=== PATIENT | male | born 1965 | race Caucasian/White ===

== ENCOUNTER 2025-02-16 08:58 | Outpatient (AMB) | payer BC, SELFPAY ==
--- NOTE | 2025-02-16 09:00 | A.OFFVIS_ITS ---
Vital Signs 02/16/25 09:10 Height 5 ft 11 in Weight 174 lb BMI 24.3 BP 126/92 H Blood Pressure Location Lt brachial Position Sitting Respiration 16 Pulse 88 Pulse Source Pulse Oximeter Pulse Oximetry (%) 99 Oxygen Delivery Method Room Air Intake Visit Reasons: ENP resting tremor upper ext Proposal Writer Required: No Allergies No Known Allergies Allergy (Verified 02/16/25 09:13) Medication List - Last Reconciled 02/16/25 by Dalia Anguiano, DAVE hydroxyzine pamoate 25 mg PO DAILY PRN propranolol 10 mg PO BID 30 days quetiapine 50 mg PO BEDTIME sertraline 50 mg PO DAILY topiramate 25 mg PO BID HPI Comments Details: Anthony is a 59-year-old male patient with a past medical history of COPD, hypertr iglyceridemia, tobacco use, and prior history of cocaine, meth, and crack cocaine use. He has been referred for an evaluation of a resting upper extremity tremor. According to primary care notes, he spent 31 days in a detox facility in August of 2024 after which she was transferred to [facility] in [place]. At the time of his December 2024 primary care visit, he was talking with a therapist by weekly and has been overall feeling very well with abstinence from illicit substances. He did bring up a concern about a chronic tremor involving his hands though he noted that the tremor has been present since he was a teenager. His mother also had a similar tremor. He also noted his hands will shake at rest worse on the left. He had reported anxiety makes his hands worse and there is no history of Parkinson's disease in his family. Today Anthony tells me that he always have the shakes even as a teenager. He has noticed it more often within the last couple of years or so. His mother also had a tremor that he can recall. It is not significant acting his day-to-day life and he is able to carry on all of his daily activities such as eating, drinking, bathing, and grooming without any significant impairment. He does however notice his tremor more and at times he can feel nervous and embarrassed about his tremor when in public. He is currently taking topiramate 25 mg daily though this has been prescribed for curving cravings for his illicit drug use history. He has remained sober over the course of the last several months. Even with initiation of the topiramate, he has not seen any difference in his tremor. Tremor screening: Onset: Teenager Progression: Worse within the last cople of year Family history: Yes, his mother had a tremor Present with activity:Yes Present at rest: No Worse with anxiety: Yes Better with alcohol: Does not typically drink alcohol Insomnia: Has had difficulty sleeping for as long as he can remember. He uses seroquel with some benefit Acting out of dreams: No Chronic constipation: No Sense of smell:No impairment Moods: Stable on sertraline Changes in gait: No Prior workup: None [facility] Medical History (Updated 02/16/25 @ 09:40 by Dalia Anguiano, PAINT SUPERVISOR) Anxiety Depression Anemia Hypertriglyceridemia Varicose veins of both lower extremities COPD (chronic obstructive pulmonary disease) Tremor of both hands Family History (Updated 02/16/25 @ 09:11 by Luis Griffiths [facility]) Father Lung cancer Mother No problems noted. Social History Alcohol intake: never Patient Tobacco Use Status: Current everyday Tobacco user Cigarettes Per Day: 15 Substance Use Type: Crack/Cocaine and Methamphetamine Review of Systems Const All systems reviewed & are unremarkable except as noted in HPI and below Neuro Reports Abnormal speech present (Speech seemed slightly garbled at times. Voice tremor noted) Physical Exam Const General: cooperative, healthy appearing, comfortable and no acute distress Nutritional Appearance: well nourished Orientation/consciousness: oriented to person, oriented to place, oriented to time and patient oriented x3 Limitations: no limitations HEENT Head: Yes normal to inspection and Yes normocephalic Eyes General: appearance normal, both eyes and all related structures Visual Saul: normal visual saul by confrontation Alignment and Position: alignment normal Periorbital: periorbital findings normal Eyelids: Yes eyelids normal Conjunctivae: conjunctivae normal Sclerae: sclerae normal Neuro General: oriented to person, oriented to place, oriented to time, patient oriented x3 and tone normal Cranial nerves: Yes CN's II-XII intact bilaterally, Yes Facial sensation intact/muscles of mastication intact, Yes Bilaterally intact EOM present and Yes Ability to bilaterally elevate shoulders present Cognition (Neuro): normal cognition Speech: Abnormal speech present (Speech seemed slightly garbled at times. Voice tremor noted) Gait exam (Neuro): Normal gait present (Normal arm sway, no imbalance, not hu nched or shuffling) Motor exam (neuro): 08/24 motor strength present throughout and Tremors during motor activity present (Head, jaw, voice, and bilateral upper extremity tremor) Sensory Exam: double simultaneous stimulation for sensation normal Deep tendon reflexes (DTR's): Right triceps reflex intensity grade: 2+, Left triceps reflex intensity grade: 2+, Rt Biceps (C5, C6): 2+, Left biceps reflex intensity grade: 2+, Right brachioradialis reflex intensity grade: 2+, Left brachioradialis reflex intensity grade: 2+, Right patellar reflex intensity grade: 3+, Left patellar reflex intensity grade: 3+, Right ankle reflex intensity grade: 3+ and Left ankle reflex intensity grade: 3+ Coordination: No [id number]-[id number] test normal (Tremor present with this exam. Not necessarily worse at endpoint) and Romberg test negative Romberg Test: Negative Pupils: Normal pupillary reactivity/response: bilateral Psych Appearance: grossly normal Mental Status: mental status grossly normal Speech and movement: Normal speech and movement present and Clear speech present Affect: normal affect Attitude: cooperative Thought process: Normal thought process present Thought content: Normal thought content present Insight: Good insight present (Psych) Judgement: Good judgement present (Psych) Assessment & Plan Assessment & Plan (1) Essential tremor: Code(s): G25.0 - Essential tremor Category: Medical (2) Hyperreflexia: Code(s): R29.2 - Abnormal reflex Category: Medical Plan Anthony is a 59-year-old male patient with a past medical history of COPD, hypertriglyceridemia, tobacco use, and prior history of cocaine, meth, and crack cocaine use. He has been referred for an evaluation of a resting upper extremity tremor. He notes a long standing upper extremity tremor which runs in his family. It has been present since he was a teenager though slightly more evident over the course of the last couple of years. His tremor is not present with rest. His exam and history are suggestive of an essential tremor. Topiramate 25 mg daily however has not made any impact though this has been used for other reasons. He would like to try low-dose propranolol 10 mg twice daily for tremor especially associated with nervousness. His exam is also noteworthy for hyperreflexia 2 patellars and ankle jerk bilaterally. I will obtain an MRI of the brain with and without contrast to exclude any possibility of structural abnormalities that may have caused or exacerbated in existing tremor. -MRI brain with and without contrast -start low-dose propranolol 10 mg twice daily -follow up in 6 weeks after the MRI has been obtained. Orders: Orders MR head/brain wo/w con Today G25.0 - Essential tremor, R29.2 - Abnormal reflex Medications: New propranolol 10 mg PO BID 60 tabs 5RF 30 days Coding Level of Care Code New Pt Level 4 (87187) Diagnoses Essential tremor G25.0 Hyperreflexia R29.2
[2025-02-16 09:10] VITALS: BP 126/92; PULSE 88; RESP 16; O2SAT 99; BMI 24.3
--- OUTSIDE RECORDS SUMMARY | 2025-02-16 09:58 | XMS_ITS | Data Portability ---
Author Organization [place] - [facility], Allergy Address [address] [address] Care Team Providers Care Grab Jack Man Name Role Phone JEMMA NASCIMENTO Primary Care Provider Assessment Encounter Date Assessment Date Assessment LastModified by Organization Details LastModified Time 03/24/2024 03/24/2024 1. Left parotid mass 2. Smoking History This is a 58-year-old gentleman with a history of a left parotid mass ongoing for the last 6 months. Today a about 3 cm mass was noted at the left parotid tail. Ultrasound shows a cystic and solid mass in the left parotid gland. Fine-needle aspiration biopsy was taken today. - Follow-up FNA results - CT neck w/ contrast was ordered Will discuss results with patient on the phone. Not available 03/24/2024 10:11:19 05/07/2024 05/07/2024 58yo active smoker who presents today with a left parotid mass concerning for malignancy. CT imaging shows solid and cystic mass in the left parotid tail. Prior fine needle aspiration in the office was nondiagnositic. IR/ultrasound guided fine needle aspiration showed necrotic contents concerning for malignancy. I spoke to the patient about the need for a left parotidectomy for concern for malignancy. I would recommend evaluation with Dr. Jody Reed at [facility]. Not available 05/07/2024 14:52:57 Plan of Treatment Reminders Order Date Submit Date Provider Last Modified By Organization Details Last Modified Time Details Appointments None recorded . Lab microsco pic exam, cytology , tissue FNA (OBS) 2023 024 [facility] (Centralized Electronic Ordering - All Locations), Patient Can Go To The Location Of Their Choice, [id number] 12/06/202 4 20:02:45 Referral ENT surgery referral 2024 025 [email or web address] Not available 5 16:46:15 Procedures fine needle aspirati on, salivary gland mass (PROC) 2023 024 [facility], [address], [place], [address], 4 09:32:04 Surgeries None recorded . Imaging CT, neck, soft tissue, w/ contrast - left parotid mass - face & neck please 2023 024 [facility] [place], [address], [facility] [address], [address], 12:15:32 Medication Orders None recorded . Patient TargetsNo targets recorded. Patient InstructionsNo instructions recorded. Reason for Referral ENT Surgery Referral for Mas s of left parotid gland Referring Physician: Vignesh Walker, Otolaryngology, Encounter Date: 05/07/2024 Results Created Date Observation Date Name Description Value Unit Range Abnormal Flag Note LastModifiedBy Organization Detail LastModifiedTime 04/07/20 24 04/03/2024 CT, neck, soft tissu e, w/ contr ast No observ ation record ed. [facility] [place] [address], [address], 04/09/2024 13:14:13 Result Notes None recorded. Problems Name Problem SNOMED Code Status Onset Date Resolution Date Notes Provider Name and Address Organization Details Recorded Time Mass of left parotid gland 0919248236875973 3 Active 2023 VIGNESH WALKER MD [address] [address], [place], [address], [facility] - [facility] 4 09:10:43 Smoker 49799331 Active 2023 VIGNESH WALKER MD 100 [facility], [place], [address], [facility] - [facility] 4 10:11:28 Problem Notes None recorded. Procedures Surgical History Date Name Laterality Status Provider Name and Address Organization Details Recorded Time Fine Needle Aspiration completed VIGNESH WALKER MD [address] [place] [address], [phone], [place] - [facility] 03/24/2024 10:10:23 Imaging Results None recorded. Procedure Notes None recorded. Medical Equipment None Reported. Medications Name Sig Start Date Stop Date Status Note LastModified by Organization Details LastModified Time cephalexin 500 mg capsule TAKE 1 CAPSULE BY MOUTH EVERY 6 HOURS FOR 5 DAYS active Not Available Not Available No t Available GaviLyte-G 236 gram-22.74 gram-6.74 gram-5.86 gram oral solution PLEASE SEE ATTACHED FOR DETAILED DIRECTIONS active Not Available Not Available N ot Available Vitals Date Recorded Body height Body mass index (BMI) Body weight Provider Name and Address Organization Details Last Updated DateTime 03/24/2024 177.8 cm 22.2 kg/m2 09217.82 g Antony Lees [place] - [facility] 03/24/2024 08:45:19 Social History None recorded. Functional Status None recorded. Mental Status None recorded. Family History Nothing Reported. Medical History No medical history recorded. Past Encounters Encounter ID Performer Location Encounter Start Date Encounter Closed Date Diagnosis/Indication Diagnosis SNOMED-CT Code Diagnosis ICD10 Code Diagnosis IMO Codes Diagnosis Note [id number] VIGNESH WALKER MD [facility] [address] [address] 03/24/2024 08:25:37 03/24/2024 09:13:59 Mass of left parotid gland 0292617007 1619770 R22.1 Smoker 90539185 F17.200 [id number] VIGNESH WALKER MD [facility] [address] [address] 05/07/2024 14:47:42 05/07/2024 16:46:15 Mass of left parotid gland 7395661229 6847180 R22.1 Health Concerns Section Related Observation LastModified by Organization Detai ls LastModified Time None Recorded Concern Status LastModified by Organization Details LastModified Time None Recorded Advance Directives Directive None Recorded Payers Insurance Date Sequence Insurance Name Policy Number Policy Ayala Covered Member ID Ayala Member ID Guarantor Name 05/11/2024 1 [place] [employer]D Anthony Sands [id number] Anthony Vasquezelena Notes Date Note Type Note Provider Name and Address Organization Details Recorded Time 03/24/2024 text/html ROS as noted in the [facility] 58yo male who presents today for evaluation for left parotitis. He was referred by his PCP, Dr. Jemma Turner. He reports this has been present since October 2023. He denies any associated symptoms including no pain, no weakness, no history of infection. He smokes 1/2 pack a day times over 30 years. He denies any other significant health problems. Ultrasound was ordered by PCP. Imaging was reviewed and interpreted independently today t his shows a cystic and solid mass at the left parotid tail. VIGNESH WALKER MD [address] [place] [address],[address], [address], [facility] - [facility] 03/24/2024 10:12:33 05/07/2024 text/html ROS as noted in the [facility] 58yo gentleman with a history of a left parotid mass. 58yo male who presents today for evaluation for left parotitis. He was referred by his PCP, Dr. Jemma Turner. He reports this has been present since October 2023. He denies any associated symptoms including no pain, no weakness, no history of infection. He smokes 1/2 pack a day times over 30 years. He denies any other significant health problems. Ultrasound was ordered by PCP.CT imaging shows solid and cystic mass in the left parotid tail.Prior fine needle aspiration in the office was nondiagnositic.IR/u ltrasound guided fine needle aspiration showed necrotic contents concerning for malignancy. VIGNESH WALKER MD 100 [facility],[address], [address], [facility] - [facility] 05/07/2024 14:54:11
--- OUTSIDE RECORDS SUMMARY | 2025-02-16 09:58 | XMS_ITS | Clinical Summary ---
Author Organization [facility] Address [address] [place] [address] Phone Care Team Providers Care Equipment Service Engineer Name Role Phone SarahAjay bedolla Primary Care Provider [phone] Family History Medical History Relation Name Comments Coronary artery disease Neg Hx Social History Tobacco Use Types Packs/Day Years Used Date Smoking Tobacco: Every Day Smokeless Tobacco: Never Sex and Gender Information Value Date Recorded Sex Assigned at Not on file Legal Sex Male 6:05 PM EST Gender Identity Not on file Sexual Orientation Not on file Obstetrics History Last Filed Vital Signs Vital Sign Reading Time Taken Comments Blood Pressure 126/78 06/28/2022 2:33 PM EST Sit ting L Arm Pulse 91 06/28/2022 2:33 PM EST Temperature - - Respiratory Rate - - Oxygen Saturation - - Inhaled Oxygen Concentration - - Weight 71.7 kg (158 lb) 06/28/2022 2:33 PM EST Height 175.3 cm (5' 9 ) 06/28/2022 2:33 PM EST Body Mass Index 23.33 06/28/2022 2:33 PM EST Plan of Treatment Health Maintenance Due Date Last Done Comments Colorectal Cancer Screening: Colonoscopy 1966 DTaP,Tdap,and Td Vaccines (1 - Tdap) 1985 Hepatitis A Vaccines (1 of 2 - Risk 2-dose series) 1985 Hepatitis B Vaccines (1 of 3 - 19+ 3-dose series) 1985 Pneumococcal Vaccine: 50+ Years (1 of 2 - PCV) 1985 Zoster Vaccines (1 of 2) 2016 Hepatitis C Screening 03/24/2022 Social Influencers of Health Screening 03/24/2022 Depression Screening 04/22/2024 COVID-19 Vaccine ( season) 2024 08/27/2020, 08/05/2020 Influenza Vaccine (#1) 2024 3, 01/25/2016, 01/26/2015, Additional history exists Cholesterol Screening (Lipid Panel) 05/21/2029 05/21/2024 RSV Immunization Adult Patients (1 - 1-dose 75+ series) 2041 HIV Screening Completed 05/21/2024 HIB Vaccines Aged Out No longer eligi ble based on patient's age to complete this topic HPV Vaccines Aged Out No longer eligi ble based on patient's age to complete this topic IPV Vaccines Aged Out No longer eligi ble based on patient's age to complete this topic MMR Vaccines Aged Out No longer eligi ble based on patient's age to complete this topic Meningococcal ACWY Vaccine Aged Out N o longer eligible based on patient's age to complete this topic Meningococcal B Vaccine Aged Out No l onger eligible based on patient's age to complete this topic RSV Immunization Patients Under 20 months Aged Out No longer eligible based on patient's age to complete this topic Varicella Vaccines Aged Out No longer eligible based on patient's age to complete this topic Procedures Procedure Name Priority Date/Time Associated Diagnosis Comments HIV 1, 2 ANTIBODY, P24 ANTIGEN WITH REFLEX TO DIFFERENTIATION Routine 05/21/2024 11:50 AM EST Laboratory tests ordered as part of a complete physical exam (CPE) Anemia Parotid mass Drug abuse ([facility] V24, [facility] V28) LIPID PANEL WITH REFLEX TO DIRECT LDL Routine 05/21/2024 11:44 AM EST Laboratory tests ordered as part of a complete physical exam (CPE) Anemia Parotid mass from Last 3 Months or Most Recently Relevant to Health Maintenance Results * HIV 1,2 antibody, p24 antigen with reflex to differentiation (05/21/2024 11:50 AM EST) HIV Combo AB/AG Negative Negative LAB CHEMISTRY METHOD 05/21/2024 3:56 PM EST [facility] Blood Venous blood specimen / Unknown Venipuncture / Unknown 05/21/2024 11:50 AM EST 05/21/2024 11:50 AM EST [facility] - 05/21/2024 3:56 PM EST This assay is a 4th generation assay allowing for earlier detection of HIV infection by detecting the presence of the HIV-1 p24 antigen as well as the traditional antibodies to HIV type 1 (including group O) and type 2. Use of a 4th generation assay is the current CDC recommendation for HIV screening. us Lamonte Swati LAB BLOOD ORDERABLES Final Resul t [facility] [address] [place] [address], [place] [phone] * Lipid panel with reflex to direct LDL (05/21/2024 11:44 AM EST) Cholesterol 154 0 - 200 mg/dL LAB CHEMISTRY METHOD 05/21/2024 3:20 PM [facility] Triglycerides 69 0 - 150 mg/dL LAB CHEMISTRY METHOD 05/21/2024 3:20 PM [facility] HDL 60 >=40 mg/dL LAB CHEMISTRY METHOD 05/21/2024 3:20 PM [facility] LDL Calculated 80 0 - 100 mg/dL LAB CHEMISTRY METHOD 05/21/2024 3:20 PM [facility] VLDL Cholesterol [place] 13.8 mg/dL LAB CHEMISTRY METHOD 05/21/2024 3:20 PM [facility] Non HDL Chol. (LDL+VLDL) 94 <145 mg/dL LAB CHEMISTRY METHOD 05/21/2024 3:20 PM [facility] Chol/HDL Ratio 2.6 0.0 - 4.4 LAB CHEMISTRY METHOD 05/21/2024 3:20 PM [facility] Blood Venous blood specimen / Unknown Venipuncture / Unknown 05/21/2024 11:44 AM EST 05/21/2024 11:44 AM EST us Lamonte Swati LAB BLOOD ORDERABLES Final Resul t [facility] [address] [place] [address], [place] [phone] from Last 3 Months or Most Recently Relevant to Health Maintenance Insurance [facility] Care Teams Equipment Service Engineer Relationship Specialty Start Date End Date Ajay Iverson DO [address] [place] [phone] PCP - General 12/31/16
--- OUTSIDE RECORDS SUMMARY | 2025-02-16 09:59 | XMS_ITS | Encounter Summary ---
Author Organization [facility] Address [address] [place] [address] [place] [id number] Phone Care Team Providers Care Horseshoer Name Role Phone SarahAjay bedolla Primary Care Provider [phone] Encounter Details Date Type Department Care Team (Late st Contact Info) Description 11/15/2020 Procedure Pass [facility], Ct Scan - [facility] [address] [place] [address] Social History Tobacco Use Types Packs/Day Years Used Date Smoking Tobacco: Every Day Cigarettes 1 30 Smokeless Tobacco: Never Comments:14 cig/day for 30 y ears Alcohol Use Standard Drinks/Week Comments Not Currently 0 (1 standard drink = 0.6 oz pur e alcohol) Sex and Gender Information Value Date Recorded Sex Assigned at Male 11/15/2020 8:08 PM EDT Legal Sex Male 9:39 PM EDT Gender Identity Not on file Sexual Orientation Not on file documented as of this encounter Functional Status * Calculated C-SSRS Risk Score (Lifetime/Recent) Answer Date of Assessment Author No Risk Indicated 11/15/2020 12:58 PM EDT Jessica Dewey RN * Wheeler Suicide Severity Rating Scale (Screener/Recent Self-Report) Question Answer Date of Assessment Author 1. Wish to be (Past 1 Month) No 021 12:58 PM DAVIDT Jessica Dewey RN 2. Non-Specific Active Suici arnie Thoughts (Past 1 Month) No 11/15/2020 12:58 PM EDT Jessica Dewey RN 6. Suicidal Behavior (Lifetime) No 12:58 PM EDT Jessica Dewey RN documented as of this encounter Plan of Treatment Not on file documented as of this encounter Visit Diagnoses Not on filedocumented in this encounter Additional Health Concerns Infection Onset Date Last Indicated Resolved Time CoV-Risk Comment:Per note documentation 11/15/2020 11/15/2020 7:56 AM EDT documented as of this encounter Care Teams Horseshoer Relationship Specialty Start Date End Date Ajay Iverson DO [address] [place] [id number] PCP - General Internal Medicine 11/15/20 documented as of this encounter Additional Source Comments The information contained in this document represents components of the legal health record. It is not the complete legal health record.[facility]
--- OUTSIDE RECORDS SUMMARY | 2025-02-16 09:59 | XMS_ITS | Encounter Summary ---
Author Organization [facility] Address [address] [facility] [address] [place] [address] Phone Care Team Providers Care Foreign Exchange Services Manager Name Role Phone SarahAjay bedolla Primary Care Provider [phone] Encounter Details Date Type Department Care Team (Late st Contact Info) Description 04/08/2024 Transcribe Orders [facility] Cytology [address] [place] [address] Therese Walker MD [address] [place] [address] [email or web address] Social History Tobacco Use Types Packs/Day Years Used Date Smoking Tobacco: Every Day Cigarettes 1 30 Smokeless Tobacco: Never Comments:14 cig/day for 30 y ears Alcohol Use Standard Drinks/Week Comments Not Currently 0 (1 standard drink = 0.6 oz pur e alcohol) Education Answer Date Recorded Are you interested in more education? Not on dru e 08/17/2022 Are you concerned about learning? Not on file 08/17/2022 No 08/17/2022 No 08/17/2022 Digital Access Answer Date Recorded No 09/15/2022 No 09/15/2022 No 09/15/2022 Reliable internet access at home? Not on file 09/15/2022 Device with a working camera? Not on file Sex and Gender Information Value Date Recorded Sex Assigned at Male 11/15/2020 8:08 PM EDT Legal Sex Male 9:39 PM EDT Gender Identity Not on file Sexual Orientation Not on file documented as of this encounter Plan of Treatment Not on file documented as of this encounter Visit Diagnoses Not on filedocumented in this encounter Care Teams Foreign Exchange Services Manager Relationship Specialty Start Date End Date Ajay Iverson DO [address] [place] [address] 18 [place] [address] PCP - General Internal Medicine 11/15/20 documented as of this encounter Additional Source Comments The information contained in this document represents components of the legal health record. It is not the complete legal health record.[facility]
--- OUTSIDE RECORDS SUMMARY | 2025-02-16 09:59 | XMS_ITS | Clinical Summary ---
Author Organization [facility] Address [address] [place] [address] Care Team Providers Care Hvac Field Service Technician Name Role Phone Unavailable Primary Care Provider Unavailabl e Medications Medication Sig Dispensed Refills Start Date End Date Status predniSONE (DELTASONE) tablet 10 mg Prednisone 10 mg tablets - Disp. #40 - Si tabs daily x 3 days; 4 tabs daily x 3 days; 2 tabs daily x 3 days; 1 tab daily x 3 days 40 tablet 0 12/16/2021 Active diphenhydrAMINE (BENADRYL) 25 mg capsule Take 2 capsules (50 mg total) by mouth 3 (three) times a day as needed for itching. 30 capsule 0 12/16/2021 Active Social History Tobacco Use Types Packs/Day Years Used Date Smoking Tobacco: Never Assessed Sex and Gender Information Value Date Recorded Sex Assigned at Male 12/16/2021 12:30 PM EDT Gender Identity Not on file Sexual Orientation Not on file Job Start Date Occupation Industry Not on file Not on file Not on file Last Filed Vital Signs Vital Sign Reading Time Taken Comments Blood Pressure 109/75 12/16/2021 5:22 PM EDT Pulse 73 12/16/2021 5:22 PM EDT Temperature 36.7 C (98 F) 12/16/2021 5:22 PM EDT Respiratory Rate 18 12/16/2021 5:22 PM EDT Oxygen Saturation 95% 12/16/2021 5:22 PM EDT Inhaled Oxygen Concentration - - Weight - - Height - - Body Mass Index - - Plan of Treatment Not on file
--- OUTSIDE RECORDS SUMMARY | 2025-02-16 09:59 | XMS_ITS | Clinical Summary ---
Author Organization [facility] Address [address] [facility] [address] [place] [address] Phone Care Team Providers Care Fitting Room Supervisor Name Role Phone SarahAajy bedolla Primary Care Provider [phone] Allergies No known active allergies Medications No known medications Active Problems Problem Noted Date Diagnosed Date Lung nodule 11/16/2020 Assessment & Plan (11/16/2020 2:14 PM EDT): Reviewed CT findings with patient. Outpatient chest CT ordered Sepsis 11/15/2020 Assessment & Plan (11/16/2020 2:09 PM EDT): Patient presented with sepsis CT abdomen/pelvis showed diffuse colonic wall thickness consistent with colitis- most likely infectious. So far results show C. difficile negative. (Stool culture pending) Seen in consultation by GI. For now continue IV antibiotics, Zosyn, IV fluid Feeling a little bit better --no nausea less diarrhea no pain No colonoscopy needed Family History Medical History Relation Comments No Known Problems Father No Known Problems Mother Relation Status Comments Father Mother Social History Tobacco Use Types Packs/Day Years [...] on file Sexual Orientation Not on file Last Filed Vital Signs Vital Sign Reading Time Taken Comments Blood Pressure 135/78 11/17/2020 5:00 PM EDT Pulse 85 11/17/2020 5:00 PM EDT Temperature 36.6 C (97.8 F) 11/17/2020 5:00 PM EDT Respiratory Rate 20 11/17/2020 1:55 PM EDT Oxygen Saturation 99% 11/17/2020 5:00 PM EDT Inhaled Oxygen Concentration - - Weight 68 kg (150 lb) 11/15/2020 12:57 PM EDT Height 180.3 cm (5' 11 ) 11/15/2020 12:57 PM EDT Body Mass Index 20.92 11/15/2020 12:57 PM EDT Plan of Treatment Health Maintenance Due Date Last Done Comments Adult Td,Tdap Booster 1966 LIPID PANEL 1966 DEPRESSION SCREENING 1978 SMOKING Hx and SMOKELESS TOBACCO SCREENING 09/20/1979 HEPATITIS C SCREENING 1984 PNEUMOCOCCAL VACCINES (50+ years) (1 of 2 - PCV) 1985 COLOGUARD 09/20/2011 COLONOSCOPY 09/20/2011 COLORECTAL CANCER SCREENING 09/20/2011 FIT TEST 09/20/2011 FOBT 09/20/2011 SIGMOIDOSCOPY 09/20/2011 VIRTUAL COLONOSCOPY 09/20/2011 ZOSTER VACCINES (1 of 2) 2016 INFLUENZA VACCINE (#1) 2024 6, 01/26/2015, 02/09/2014 COVID-19 VACCINE (3 - 2024-2 6 season) 2024 08/27/2020, 08/05/2020 RSV VACCINE (1 - 1-dose 75+ series) 2041 HIV ONE-TIME SCREENING (18-6 5 YEARS) Completed 11/15/2020 HEPATITIS A VACCINES Aged Out No long er eligible based on patient's age to complete this topic HIB VACCINES Aged Out No longer eligi ble based on patient's age to complete this topic MENINGOCOCCAL VACCINES (ACWY) Aged Out No longer eligible based on patient's age to complete this topic MENINGOCOCCAL VACCINES (B) Aged Out N o longer eligible based on patient's age to complete this topic Medical Devices Not on file Insurance [employer] [facility] [employer] Advance Directives For more information, please contact: [phone] (9AM - 5PM [place]/[facility], Saturday-Saturday) * Full Code (Latest Code Status on File) Date Activated Date Inactivated Comments 11/15/2020 9:27 PM Question Answer Comments Code Status Confirmed With: Patient Care Teams Fitting Room Supervisor Relationship Specialty Start Date End Date Ajay Iverson DO [address] [place] [address] PCP - General Internal Medicine 11/15/20 Additional Source Comments The information contained in this document represents components of the legal health record. It is not the complete legal health record.[facility]
--- OUTSIDE RECORDS SUMMARY | 2025-02-16 09:59 | XMS_ITS | Encounter Summary ---
Author Organization [facility] Address [address] [place] [address] [place] [address] Phone Care Team Providers Care Perinatal Coordinator Name Role Phone Ajay Iverson DO Primary Care Provider [phone] Encounter Details Date Type Department Care Team (Late st Contact Info) Description 11/16/2020 Procedure Pass [facility], Ct Scan - [facility] [address] [place] [address] Social History Tobacco Use Types Packs/Day Years [...] documented as of this encounter Care Teams Perinatal Coordinator Relationship Specialty Start Date End Date Ajay Iverson DO [address] [place] [address] PCP - General Internal Medicine 11/15/20 documented as of this encounter Additional Source Comments The information contained in this document represents components of the legal health record. It is not the complete legal health record.[facility]
== END 2025-02-16 09:40 | disposition home or self-care (01) ==
PROVIDERS: PCP Internal Medicine; Visit Provider Nurse Practitioner
DX: G25.0 Essential tremor (principal); R29.2 Abnormal reflex
CPT/HCPCS: 99204

== ENCOUNTER 2025-03-24 15:52 | Outpatient (REF) | payer BC, SELFPAY ==
--- NOTE | ~2025-03-24 | MR_ITS ---
EXAMINATION: MR BRAIN WITHOUT THEN WITH IV CONTRAST CLINICAL INFORMATION: G25.0 - Essential tremor COMPARISON: None available. TECHNIQUE: Multiplanar, multisequence MRI of the brain was obtained before and after the intravenous administration of 7.5 ml of contrast gadolinium Gadavist. FINDINGS: Artifact degrades some sequences. Brain parenchyma: A few T2/FLAIR hyperintense foci in the white matter of bilateral frontal lobes. No shift of midline structures. No evidence of acute infarct, mass lesion, parenchymal hemorrhage or abnormal enhancement. Ventricles/extra-axial spaces: Mild generalized prominence of the ventricles and extra-axial spaces, reflecting mild brain volume loss, mildly more than expected for patient's age. No hydrocephalus. No extra-axial fluid collection. Extracranial structures: Arterial flow voids in the skull base are preserved. Bilateral orbital globes are unremarkable. Moderate mucosal thickening of the ethmoid air cells and mildly of the maxillary sinuses. Moderate right mastoid effusion. MR/MR head/brain wo/w con IMPRESSION: 1. No acute intracranial findings. 2. No abnormal parenchymal enhancement. 3. Few nonspecific white matter changes. Differential considerations include microangiopathic disease, headache related white matter changes, demyelinating disorder and various inflammatory/autoimmune/vasculitic processes. 4. Right mastoid effusion. Electronically signed by: Aura Goss MD 03/24/2025 06:31 PM KB
--- OUTSIDE RECORDS SUMMARY | 2025-03-24 18:43 | XMS_ITS | Encounter Summary ---
Author Organization [facility] Address [address] [facility] [address] [place] [address] Phone Care Team Providers Care Lining Parts Sewer Name Role Phone SarahAjay bedolla Primary Care Provider [phone] Encounter Details Date Type Department Care Team (Late st Contact Info) Description 04/08/2024 Transcribe Orders [facility] Cytology [address] [place] [address] Therese Walker MD [address] [place] [address] [email or web address] Social History Tobacco Use Types Packs/Day Years [...] on filedocumented in this encounter Care Teams Lining Parts Sewer Relationship Specialty Start Date End Date Ajay Iverson DO [address] [place] [address] 18 [place] [address] PCP - General Internal Medicine 11/15/20 documented as of this encounter Additional Source Comments The information contained in this document represents components of the legal health record. It is not the complete legal health record.[facility]
--- OUTSIDE RECORDS SUMMARY | 2025-03-24 18:43 | XMS_ITS | Encounter Summary ---
Author Organization [facility] Address [address] [place] [address] [place] [address] Phone Care Team Providers Care Supervisor Hand Silvering Name Role Phone Ajay Iverson DO Primary Care Provider [phone] Encounter Details Date Type Department Care Team (Late st Contact Info) Description 11/16/2020 Procedure Pass [facility], Ct Scan - [address] [address] Social History Tobacco Use Types Packs/Day Years [...] documented as of this encounter Care Teams Supervisor Hand Silvering Relationship Specialty Start Date End Date Ajay Iverson DO [address] [place] [address] PCP - General Internal Medicine 11/15/20 documented as of this encounter Additional Source Comments The information contained in this document represents components of the legal health record. It is not the complete legal health record.[facility]
--- OUTSIDE RECORDS SUMMARY | 2025-03-24 18:43 | XMS_ITS | Clinical Summary ---
Author Organization [facility] Prior to 09/19/24 Address [address] [place] [address] Care Team Providers Care Retarder Operator Name Role Phone Unavailable Primary Care Provider [...]
--- OUTSIDE RECORDS SUMMARY | 2025-03-24 18:43 | XMS_ITS | Clinical Summary ---
Author Organization [facility] Address [address] [facility] [address] [place] [address] Phone Care Team Providers Care Research Physiologist Name Role Phone SarahAjay bedolla Primary Care Provider [phone] Allergies No known active allergies Medications No [...] topic Medical Devices Not on file Insurance [employer] [facility] [employer] Advance Directives For more information, please contact: [phone] (9AM - 5PM [place]/[facility], Saturday-Saturday) * Full Code (Latest Code Status on File) Date Activated Date Inactivated Comments 11/15/2020 9:27 PM Question Answer Comments Code Status Confirmed With: Patient Care Teams Research Physiologist Relationship Specialty Start Date End Date Ajay Iverson DO [address] [place] [address] PCP - General Internal Medicine 11/15/20 Additional Source Comments The information contained in this document represents components of the legal health record. It is not the complete legal health record.[facility]
--- OUTSIDE RECORDS SUMMARY | 2025-03-24 18:43 | XMS_ITS | Data Portability ---
Author Organization [place] [facility] Address [address] [address] Care Team Providers Care Jig Hand Name Role Phone JEMMA NASCIMENTO Primary Care [...] recommend evaluation with Dr. Jody Reed at [facility]. Not available 05/07/2024 14:52:57 Plan of Treatment Reminders Order Date Submit Date Provider Last Modified By Organization Details Last Modified Time Details Appointments None recorded . Lab microsco pic exam, cytology , tissue FNA (OBS) 2023 024 [facility] (Centralized Electronic Ordering - All Locations), Patient Can Go To The Location Of Their Choice, [address] 12/06/202 4 20:02:45 Referral ENT surgery referral 2024 025 [email or web address] Not available 5 16:46:15 Procedures fine needle aspirati on, salivary gland mass (PROC) 2023 024 [email or web address] [facility], [address], [place], [address], 4 09:32:04 Surgeries None recorded . Imaging CT, neck, soft tissue, w/ contrast - left parotid mass - face & neck please 2023 024 [facility], [address], [facility] [address], [place], [address], 12:15:32 Medication Orders None recorded . Patient [...] No observ ation record ed. [facility] [address], [address], 04/09/2024 13:14:13 Result Notes None recorded. 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 4 09:10:43 Smoker 50483696 Active 2023 VIGNESH WALKER MD 100 [facility] 100, [place], [address], [facility] - [facility] 4 10:11:28 Problem Notes None recorded. Procedures Surgical History Date Name Laterality Status Provider Name and Address Organization Details Recorded Time Fine Needle Aspiration completed VIGNESH WALKER MD [address] [place] [address], [address], [place] - [facility] 03/24/2024 10:10:23 Imaging Results None recorded. [...] Updated DateTime 03/24/2024 177.8 cm 22.2 kg/m2 33989.82 g Antoyn Lees [place] - [facility] 03/24/2024 08:45:19 Social History None recorded. Functional Status None recorded. Mental Status None recorded. Family History Nothing Reported. Medical History No medical history recorded. Past Encounters Encounter ID Performer Location Encounter Start Date Encounter Closed Date Diagnosis/Indication Diagnosis SNOMED-CT Code Diagnosis ICD10 Code Diagnosis IMO Codes Diagnosis Note [id number] VIGNESH WALKER MD [facility] [address] [address] 03/24/2024 08:25:37 03/24/2024 09:13:59 Mass of left parotid gland 8758547785 3367876 R22.1 Smoker 11756893 F17.200 [id number] VIGNESH WALKER MD [facility] [address] [address] 05/07/2024 14:47:42 05/07/2024 16:46:15 Mass of left parotid gland 9336139842 7895893 R22.1 Health Concerns Section Related Observation LastModified by Organization Detai ls LastModified Time None Recorded Concern Status LastModified by Organization Details LastModified Time None Recorded Advance Directives Directive None Recorded Payers Insurance Date Sequence Insurance Name Policy Number Policy Ayala Covered Member ID Ayala Member ID Guarantor Name 05/11/2024 1 [place] [employer] 33D Anthony Sands [id number] Anthony Vasquezelena Notes Date Note Type Note Provider Name and Address Organization Details Recorded Time 03/24/2024 text/html ROS as noted in the [facility] 58yo male who presents today for evaluation [...] the left parotid tail. VIGNESH WALKER MD [address] [place] [address],[address], [address], [facility] - [facility] 03/24/2024 10:12:33 05/07/2024 text/html [place] as noted in the [facility] 58yo gentleman with a history of a [...] concerning for malignancy. VIGNESH WALKER MD [address] [facility],[address], [address], [facility] - [facility] 05/07/2024 14:54:11
--- OUTSIDE RECORDS SUMMARY | 2025-03-24 18:43 | XMS_ITS | Clinical Summary ---
Author Organization [facility] Address [address] [place] [address] Phone Care Team Providers Care Senior Planning Manager Name Role Phone SarahAjay bedolla Primary Care Provider [phone] Family History Medical History Relation Name Comments [...] exam (CPE) Anemia Parotid mass Drug abuse ([facility] V24, [facility] V28) LIPID PANEL WITH REFLEX TO DIRECT [...] LAB CHEMISTRY METHOD 05/21/2024 3:56 PM EST [facility] Blood Venous blood specimen / Unknown Venipuncture / Unknown 05/21/2024 11:50 AM EST 05/21/2024 11:50 AM EST [facility] - 05/21/2024 3:56 PM EST [...] Swati LAB BLOOD ORDERABLES Final Resul t [facility] [address] [place] [address], [place] [phone] * Lipid panel with reflex to direct LDL (05/21/2024 11:44 AM EST) Cholesterol 154 0 - 200 mg/dL LAB CHEMISTRY METHOD 05/21/2024 3:20 PM [facility] Triglycerides 69 0 - 150 mg/dL LAB CHEMISTRY METHOD 05/21/2024 3:20 PM [facility] HDL 60 >=40 mg/dL LAB CHEMISTRY METHOD 05/21/2024 3:20 PM [facility] LDL Calculated 80 0 - 100 mg/dL LAB CHEMISTRY METHOD 05/21/2024 3:20 PM [facility] VLDL Cholesterol [place] 13.8 mg/dL LAB CHEMISTRY METHOD 05/21/2024 3:20 PM [facility] Non HDL Chol. (LDL+VLDL) 94 <145 mg/dL LAB CHEMISTRY METHOD 05/21/2024 3:20 PM [facility] Chol/HDL Ratio 2.6 0.0 - 4.4 LAB CHEMISTRY METHOD 05/21/2024 3:20 PM [facility] Blood Venous blood specimen / Unknown Venipuncture / Unknown 05/21/2024 11:44 AM EST 05/21/2024 11:44 AM EST us Lamonte Swati LAB BLOOD ORDERABLES Final Resul t [facility] [place] ([facility] [address] [place] [address], [place] [phone] from Last 3 Months or Most Recently Relevant to Health Maintenance Insurance [facility] Care Teams Senior Planning Manager Relationship Specialty Start Date End Date Ajay Iverson DO [address] [place] [phone] PCP - General 12/31/16
--- OUTSIDE RECORDS SUMMARY | 2025-03-24 18:43 | XMS_ITS | Encounter Summary ---
Author Organization [facility] Address [address] [place] [address] [place] [address] Phone Care Team Providers Care Healthcare Corporate Account Director Name Role Phone SarahAjay bedolla Primary Care Provider [phone] Encounter Details Date Type Department Care Team (Late st Contact Info) Description 11/15/2020 Procedure Pass [facility], Ct Scan - [facility] [address] [place] [address] Social History Tobacco Use Types Packs/Day Years [...] 12:58 PM EDT Jessica Dewey RN * [place] Suicide Severity Rating Scale (Screener/Recent Self-Report) Question [...] documented as of this encounter Care Teams Healthcare Corporate Account Director Relationship Specialty Start Date End Date Ajay Iverson DO [address] [place] [address] PCP - General Internal Medicine 11/15/20 documented as of this encounter Additional Source Comments The information contained in this document represents components of the legal health record. It is not the complete legal health record.[facility]
== END 2025-03-24 15:53 | disposition home or self-care (01) ==
LOC: HO.MRI 15:52
PROVIDERS: PCP Internal Medicine; Visit Provider Nurse Practitioner
DX: G25.0 Essential tremor (principal); R29.2 Abnormal reflex
CPT/HCPCS: 70553; A9585

== ENCOUNTER → 2025-03-24 15:59 | Outpatient (BNV) | payer BC, SELFPAY | PROVIDERS: PCP Internal Medicine; Visit Provider Radiology Body Imaging | DX: G25.0 Essential tremor (principal); H74.8X1 Other specified disorders of right middle ear and mastoid | CPT/HCPCS: 70553 ==

== ENCOUNTER 2025-03-30 07:40 | Outpatient (AMB) | payer BC, SELFPAY ==
--- NOTE | 2025-03-30 07:33 | MHC.OFFVIS ---
Vital Signs 03/30/25 07:38 Height 5 ft 11 in Weight 175 lb BMI 24.4 BP 124/88 Blood Pressure Location Lt brachial Position Sitting Respiration 16 Pulse 73 Pulse Source Pulse Oximeter Pulse Oximetry (%) 100 Oxygen Delivery Method Room Air Intake Visit Reasons: 6 weeks follow up, review MRI Director Business Systems Required: No Allergies No Known Allergies Allergy (Verified 03/30/25 07:39) HPI Comments Details: Jam is a 59-year-old male patient with a past medical history of COPD, hypertriglyceridemia, tobacco use, and prior history of cocaine, meth, and crack cocaine use. He is here today for a follow up visit for a tremor. His tremor has been present since he was a teenager and his mother also had a similar tremor. Tremors generally worse on the left. Anxiety makes his tremor worse and there was no history of Parkinson's disease in his family. At the time of his initial visit on 02/16/2025, he reported that he ?always has the shakes?. He notices tremor 1st when he was a teenager and over the course of the last couple of years he had noticed it more often. Now that he has been sober from a number of substances, he has been noticing it even more. It was not affecting his day-to-day life significantly and he was able to carry on all of his tasks including eating, drinking, bathing, and grooming without any significant impairment. However, he was beginning to feel very nervous and embarrassed about it which then could make his tremor worse. He tried topiramate 25 mg daily which has been prescribed for curving his cravings for his polysubstance use. He is no longer taking that. With a Topiramate however he did not see any difference in his tremor. At the time of his last visit, I ordered an MRI of the brain as well as Propranolol 10 mg twice daily for treatment of his tremor. His MRI of the brain showed a few nonspecific white matter changes but overall no obvious structural abnormality as likely to produce symptoms. He tells me that he has responded well to the propranolol 10 mg and has only been taking one 10 mg tablet in the daytime but has not been taking his evening dose as he does not feel it is necessary. He is most active during the day and feels that the propranolol helps him get through his day and once he is home in the evening he does not feel that it is necessary to take the evening dose. He has been tolerating it well and has seen an improvement in his tremor with 10 mg once daily. Tremor screening: Onset: Teenager Progression: Worse within the last cople of year Family history: Yes, his mother had a tremor Present with activity:Yes Present at rest: No Worse with anxiety: Yes Better with alcohol: Does not typically drink alcohol Insomnia: Has had difficulty sleeping for as long as he can remember. He uses seroquel with some benefit Acting out of dreams: No Chronic constipation: No Sense of smell:No impairment Moods: Stable on sertraline Changes in gait: No Medications tried: Topiramate-no improvement Propranolol-improvement in tremor Prior workup: MRI of the brain with and without contrast 03/24/2025 IMPRESSION: 1. No acute intracranial findings. 2. No abnormal parenchymal enhancement. 3. Few nonspecific white matter changes. Differential considerations include microangiopathic disease, headache related white matter changes, demyelinating disorder and various inflammatory/autoimmune/vasculitic processes. 4. Right mastoid effusion. [facility] Medical History (Updated 02/16/25 @ 09:40 by Dalia Anguiano CNP) Anxiety Depression Anemia Hypertriglyceridemia Varicose veins of both lower extremities COPD (chronic obstructive pulmonary disease) Tremor of both hands Family History (Updated 02/16/25 @ 09:12 by Luis Griffiths [facility]) Father Lung cancer Mother No problems noted. Social History Alcohol intake: never Patient Tobacco Use Status: Current everyday Tobacco user Cigarettes Per Day: 15 Substance Use Type: Crack/Cocaine and Methamphetamine Review of Systems Const All systems reviewed & are unremarkable except as noted in HPI and below Neuro Reports Abnormal speech present (Speech seemed slightly garbled at times. Voice tremor noted) Physical Exam Vital Signs: Last Vital Signs Pulse 73 03/30/25 07:38 Resp 16 03/30/25 07:38 BP 124/88 03/30/25 07:38 Pulse Ox 100 03/30/25 07:38 Oxygen Delivery Method Room Air 03/30/25 07:38 BMI result Body Mass Index 24.4 Const General: cooperative, healthy appearing, comfortable and no acute distress Nutritional Appearance: well nourished Orientation/consciousness: oriented to person, oriented to place, oriented to time and patient oriented x3 Limitations: no limitations HEENT Head: Yes normal to inspection and Yes normocephalic Eyes General: appearance normal, both eyes and all related structures Visual Saul: normal visual saul by confrontation Alignment and Position: alignment normal Periorbital: periorbital findings normal Eyelids: Yes eyelids normal Conjunctivae: conjunctivae normal Sclerae: sclerae normal Neuro General: oriented to person, oriented to place, oriented to time, patient oriented x3 and tone normal Cranial nerves: Yes CN's II-XII intact bilaterally, Yes Facial sensation intact/muscles of mastication intact, Yes Bilaterally intact EOM present and Yes Ability to bilaterally elevate shoulders present Cognition (Neuro): normal cognition Speech: Abnormal speech present (Speech seemed slightly garbled at times. Voice tremor noted) Gait exam (Neuro): Normal gait present (Normal arm sway, no imbalance, not hunched or shuffling) Motor exam (neuro): 5/5 motor strength present throughout and Tremors during motor activity present ((Head, jaw, voice, and bilateral upper extremity tremor) improved ) Sensory Exam: double simultaneous stimulation for sensation normal Deep tendon reflexes (DTR's): Right triceps reflex intensity grade: 2+, Left triceps reflex intensity grade: 2+, Rt Biceps (C5, C6): 2+, Left biceps reflex intensity grade: 2+, Right brachioradialis reflex intensity grade: 2+, Left brachioradialis reflex intensity grade: 2+, Right patellar reflex intensity grade: 3+, Left patellar reflex intensity grade: 3+, Right ankle reflex intensity grade: 3+ and Left ankle reflex intensity grade: 3+ Coordination: No [id number] test normal (Tremor present with this exam. Not necessarily worse at endpoint) and Romberg test negative Romberg Test: Negative Pupils: Normal pupillary reactivity/response: bilateral Psych Appearance: grossly normal Mental Status: mental status grossly normal Speech and movement: Normal speech and movement present and Clear speech present Affect: normal affect Attitude: cooperative Thought process: Normal thought process present Thought content: Normal thought content present Insight: Good insight present (Psych) Judgement: Good judgement present (Psych) Assessment & Plan Assessment & Plan (1) Essential tremor: Code(s): G25.0 - Essential tremor Category: Medical Plan Jam is a 59-year-old male patient with a past medical history of COPD, hypertriglyceridemia, tobacco use, and prior history of cocaine, meth, and crack cocaine use. He is here today for a follow up visit for a tremor. His MRI of the brain showed no significant abnormalities and he has been responding well to propranolol 10 mg daily. We discussed increasing his dose to 20 mg as he has tolerated the 10 mg dose well. He will consider it but feels that he only needs to dose during the day rather than twice daily. I did change the prescription to 20 mg daily and I explained that he can choose to take 10 mg or 20 mg and if he should decide to take an evening dose that is okay as well. We will follow up in 6 months or sooner if needed. If he does well with the six-month jam can drop down to yearly visits. -change propranolol dosing slightly to 20 mg daily -follow up in 6 months or sooner if needed Medications: Changed From propranolol 10 mg PO BID 30 days 60 tabs 5RF To propranolol 20 mg (2 x 10 mg) PO DAILY 180 tabs 3RF 90 days Coding Level of Care Code Est Pt Level 4 (10784) Diagnoses Essential tremor G25.0
[2025-03-30 07:38] VITALS: BP 124/88; PULSE 73; RESP 16; O2SAT 100; BMI 24.4
--- OUTSIDE RECORDS SUMMARY | 2025-03-30 08:04 | XMS_ITS | Clinical Summary ---
Author Organization [facility] Address [address] [place] [address] Phone Care Team Providers Care Alum Operator Name Role Phone SarahAjay bedolla Primary Care Provider [phone] Family History Medical History Relation Name Comments [...] exam (CPE) Anemia Parotid mass Drug abuse ([facility] V24, [facility] V28) LIPID PANEL WITH REFLEX TO [...] LAB CHEMISTRY METHOD 05/21/2024 3:56 PM EST [facility] Blood Venous blood specimen / Unknown Venipuncture / Unknown 05/21/2024 11:50 AM EST 05/21/2024 11:50 AM EST Narrative [facility] - 05/21/2024 3:56 PM EST This [...] Swati LAB BLOOD ORDERABLES Final Resul t [facility] [address] [place] [address], [place] [phone] * Lipid panel with reflex to direct LDL (05/21/2024 11:44 AM EST) Cholesterol 154 0 - 200 mg/dL LAB CHEMISTRY METHOD 05/21/2024 3:20 PM [facility] Triglycerides 69 0 - 150 mg/dL LAB CHEMISTRY METHOD 05/21/2024 3:20 PM [facility] HDL 60 >=40 mg/dL LAB CHEMISTRY METHOD 05/21/2024 3:20 PM [facility] LDL Calculated 80 0 - 100 mg/dL LAB CHEMISTRY METHOD 05/21/2024 3:20 PM [facility] VLDL Cholesterol [place] 13.8 mg/dL LAB CHEMISTRY METHOD 05/21/2024 3:20 PM [facility] Non HDL Chol. (LDL+VLDL) 94 <145 mg/dL LAB CHEMISTRY METHOD 05/21/2024 3:20 PM [facility] Chol/HDL Ratio 2.6 0.0 - 4.4 LAB CHEMISTRY METHOD 05/21/2024 3:20 PM [facility] Blood Venous blood specimen / Unknown Venipuncture / Unknown 05/21/2024 11:44 AM EST 05/21/2024 11:44 AM EST us Lamonte Swati LAB BLOOD ORDERABLES Final Resul t [facility] [address] [place] [address], [place] [phone] from Last 3 Months or Most Recently Relevant to Health Maintenance Insurance [facility] Care Teams Alum Operator Relationship Specialty Start Date End Date Ajay Iverson DO [address] [place] [phone] PCP - General 12/31/16
--- OUTSIDE RECORDS SUMMARY | 2025-03-30 08:05 | XMS_ITS | Clinical Summary ---
Author Organization [facility] Address [address] [place] [address] Phone Care Team Providers Care Die Grinder Name Role Phone SarahAjay bedolla Primary Care Provider [phone] Allergies No known active allergies Medications No [...] topic Medical Devices Not on file Insurance [employer] [facility][NOTE 3] [employer] Advance Directives For more information, please contact: [phone] (9AM - 5PM [place], Saturday-Saturday) * Full Code (Latest Code Status on File) Date Activated Date Inactivated Comments 11/15/2020 9:27 PM Question Answer Comments Code Status Confirmed With: Patient Care Teams Die Grinder Relationship Specialty Start Date End Date Ajay Iverson DO [address] [place] [address] PCP - General Internal Medicine 11/15/20 Additional Source Comments The information contained in this document represents components of the legal health record. It is not the complete legal health record.[facility]
--- OUTSIDE RECORDS SUMMARY | 2025-03-30 08:05 | XMS_ITS | Encounter Summary ---
Author Organization Loc[facility] Address [address] [place] [address] [place] [address] Phone Care Team Providers Care Warehouse Stocker Name Role Phone SarahAjay bedolla Primary Care Provider [phone] Encounter Details Date Type Department Care Team (Late st Contact Info) Description 11/15/2020 Procedure Pass [facility], Ct Scan - [facility] [address] [place] [address] Social History Tobacco Use Types Packs/Day Years [...] 12:58 PM EDT Jessica Dewey RN * [place] Suicide Severity Rating Scale (Screener/Recent Self-Report) Question [...] documented as of this encounter Care Teams Warehouse Stocker Relationship Specialty Start Date End Date Ajay Iverson DO [address] [place] [id number] PCP - General Internal Medicine 11/15/20 documented as of this encounter Additional Source Comments The information contained in this document represents components of the legal health record. It is not the complete legal health record.[facility]
--- OUTSIDE RECORDS SUMMARY | 2025-03-30 08:05 | XMS_ITS | Encounter Summary ---
Author Organization [facility] Address [address] [place] [address] [place] [phone] Phone Care Team Providers Care Clinical Research Tech Name Role Phone Ajay Iverson DO Primary Care Provider [phone] Encounter Details Date Type Department Care Team (Late st Contact Info) Description 11/16/2020 Procedure Pass [facility], Ct Scan - [address] [address] Social History Tobacco Use Types Packs/Day Years [...] documented as of this encounter Care Teams Clinical Research Tech Relationship Specialty Start Date End Date Ajay Iverson DO [address] [place] [address] PCP - General Internal Medicine 11/15/20 documented as of this encounter Additional Source Comments The information contained in this document represents components of the legal health record. It is not the complete legal health record.[facility]
--- OUTSIDE RECORDS SUMMARY | 2025-03-30 08:05 | XMS_ITS | Encounter Summary ---
Author Organization [facility] Address [address] [facility] [address] [place] [address] Phone Care Team Providers Care Gis Web Developer Name Role Phone SarahAjay bedolla Primary Care Provider [phone] Encounter Details Date Type Department Care Team (Late st Contact Info) Description 04/08/2024 Transcribe Orders [facility]ology [address] [place] [address] Therese Walker MD [address] [place] [id number] [email or web address] Social History Tobacco Use Types Packs/Day Years [...] on filedocumented in this encounter Care Teams Gis Web Developer Relationship Specialty Start Date End Date Ajay Iverson DO [address] [place] [address] [address] [place] [address] PCP - General Internal Medicine 11/15/20 documented as of this encounter Additional Source Comments The information contained in this document represents components of the legal health record. It is not the complete legal health record.[facility]
--- OUTSIDE RECORDS SUMMARY | 2025-03-30 08:05 | XMS_ITS | Clinical Summary ---
Author Organization [facility] Prior to 09/19/24 Address [address] [place] [address] Care Team Providers Care Motor Mechanic Name Role Phone Unavailable Primary Care Provider [...]
== END 2025-03-30 07:50 | disposition home or self-care (01) ==
LOC: HO.HSM 07:40
PROVIDERS: PCP Internal Medicine; Visit Provider Nurse Practitioner
DX: G25.0 Essential tremor (principal)
CPT/HCPCS: 99214